=== PATIENT | female | born 1975 | race Two or more races ===

== ENCOUNTER 2024-12-27 08:56 | Emergency (ER) | payer MEDICAID, SELFPAY ==
--- NOTE | 2024-12-27 09:18 | XR_ITS ---
Examination: CT abdomen and pelvis without contrast. Coronal 3-D reconstructions. Sagittal 2-D reconstructions. Date and time of exam:December 27, 2024 1113 hours INDICATIONS: Abdominal pain and nausea today, history kidney stones COMPARISON: November 16, 2022 CTDI: vol (mGy): 9.02 DLP: (mGycm): 519 Technique: Axial images of the abdomen have been obtained, 3 mm slice thickness Intravenous contrast material has not been administered. Low dose protocols were performed. One or more of the following dose reduction techniques were used; automated exposure control, adjustment of the mA and/or KV according to patient size, use of iterative reconstruction technique. Findings: Retrocardiac gastric hernia No focal liver or splenic lesions Contracted gallbladder No pancreatic or adrenal mass Hyperdense renal pyramids with tiny 1 mm bilateral renal calculi No hydronephrosis or ureteral calculi Normal appendix No bowel obstruction No pelvic mass Contracted urinary bladder IMPRESSION: Tiny bilateral renal calculi with nephrocalcinosis No hydronephrosis or ureteral calculi Normal appendix No bladder mass or bladder calculi
--- NOTE | 2024-12-27 09:19 | XR_ITS ---
Examination: Abdomen sonogram, Limited Date and time of exam: December 27, 2024 10:00 AM INDICATIONS: Epigastric pain beginning 2 days ago Technique: Real-time appiah scale transabdominal sonographic images of the upper abdomen obtained. Findings: Normal gallbladder. Normal common bile duct 0.2 cm Pancreatic head 2.6 cm Liver 13.3 cm smooth contour no focal liver lesions Normal hepatopedal portal venous flow Patent IVC IMPRESSION: Negative study
--- NOTE | 2024-12-27 09:20 | PD.EDRME ---
Rapid Medical Screening Exam RME Arrival date/time: 12/27/24 08:56 49-year-old female presents to the emergency department for complaints of upper abdominal pain Chief Complaint: Abdominal Pain
[2024-12-27 09:26] VITALS: BP 159/101; PULSE 65; RESP 18; TEMP 36.8; O2SAT 97
[2024-12-27] MEDS: HYDROcodone/APAP 5/325 TABLET 1 TAB PO (09:30)
[2024-12-27] MEDS: METOCLOPRAMIDE 5 MG TABLET 10 MG PO (09:31)
[2024-12-27 09:41] LABS: Basophils # (Auto) 0.1 Thou/mm3 (0.0-0.2); Basophils % (Auto) 1 % (0-2.5); Eosinophils # (Auto) 0.2 Thou/mm3 (0.0-0.5); Eosinophils % (Auto) 3 % (0-10); Hematocrit 34.3 % (36.0-46.0); Hemoglobin 10.6 g/dL (12.0-16.0); Immature Granulocytes Auto 0.03 Thou/mm3 (0.00-0.00); Lymphocytes # (Auto) 2.0 Thou/mm3 (1.0-4.8); Lymphocytes % (Auto) 30 % (10-50); Mean Corpuscular HGB Conc 30.9 g/dl (31.0-37.0); Mean Corpuscular Hemoglobin 18.8 pg (25.0-35.0); Mean Corpuscular Volume 61 fL (80-100); Monocytes # (Auto) 0.7 Thou/mm3 (0.0-0.8); Monocytes % (Auto) 10 % (0-12); Neutrophils # (Auto) 3.9 Thou/mm3 (1.8-7.7); Neutrophils % (Auto) 57 % (37-80); Nucleated Red Blood Cell # 0.02 Thou/mm3 (0.00-0.00); Nucleated Red Blood Cell % 0 /100 WBC (0); Platelet Count 384 Thou/mm3 (140-440); RDW Standard Deviation 37.6 fL (36.4-46.3); Red Blood Count 5.63 Miln/mm3 (4.00-5.20); White Blood Count 6.9 Thou/mm3 (3.6-11.0)
[2024-12-27 10:01] LABS: Alanine Aminotransferase 39 U/L (10-49); Albumin, Serum 4.6 gm/dL (3.5-5.0); Albumin/Globulin Ratio 1.9 (1.2-2.2); Alkaline Phosphatase 146 U/L (46-116); Amylase 67 U/L (30-118); Anion Gap 9 (7-16); Aspartate Amino Transferase 30 U/L (0-34); BUN/Creatinine Ratio 14 Ratio (12-20); Bilirubin,Total 0.5 mg/dL (0.3-1.2); Blood Urea Nitrogen 11 mg/dL (9-23); Calcium 10.1 mg/dL (8.3-10.6); Calcium (Corrected) 10.1 mg/dL (8.5-10.1); Carbon Dioxide 28.0 mMol/L (20.0-31.0); Chloride 105 mMol/L (98-107); Creatinine (Component) 0.8 mg/dL (0.6-1.3); Globulin 2.4 gm/dL (2.3-3.5); Glucose 89 mg/dL (74-106); Osmolality,Calculated 281 (275-295); Potassium 4.4 mMol/L (3.4-5.1); Sodium 142 mMol/L (136-145); Total Protein 7.0 gm/dL (5.7-8.2); eGFR > 60 See Note
[2024-12-27 10:34] LABS: Collection Type, Urine Clean Catch
[2024-12-27 10:37] LABS: HCG Qualitative,Urine Negative
[2024-12-27 10:40] LABS: Bacteria,Urine 4+; Bilirubin,Urine Negative (Negative); Blood,Urine Trace (Negative); Color,Urine Yellow (Lt Yel-Yel); Glucose, Urine Negative (Negative); Hyaline Casts,Urine < 1 /hpf (0-1); Ketones,Urine Negative (Negative); Leukocyte Esterase,Urine Positive (Negative); Nitrite,Urine Positive (Negative); PH,Urine 6.5 (5.0-7.0); Protein,Urine Trace (Neg - Trace); RBC,Urine 4 /hpf (0-3); Specific Gravity,Urine 1.027 (1.001-1.035); Squamous Epithelial Cell,Urine 10 /hpf (0-5); Urobilinogen,Urine Negative mg/dL (0.0-1.0); WBC,Urine 15 /hpf (0-5)
[2024-12-27 10:43] LABS: Clarity,Urine Hazy (Clear/Hazy); Culture Indicated,Urine Yes
--- NOTE | 2024-12-27 13:00 | EDNOTE_ITS ---
ED Abdominal Pain RME/HPI General Chief Complaint: Abdominal Pain Stated complaint: UPPER ABD PAIN, NAUSEA Time seen by provider: 12/27/24 10:38 Arrival date/time: 12/27/24 08:56 RME / HPI RME / HPI narrative: 49-year-old female patient came in for evaluation regarding epigastric pain. Onset of symptoms for the last few days as epigastric pain described as dull ache, severity mild, associated with nausea. Patient denies any fever denies any dysuria frequency or other complaints. No medication was taken prior to ER visit. Related Data Home Medications ?Medication ?Instructions ?Recorded ?Confirmed atenolol 100 mg tablet 100 mg PO QAM 12/16/2312/15 Previous Rx's ?Medication ?Instructions ?Recorded hydrocodone 10 mg-acetaminophen 1 tab PO Q6H PRN pain #20 tabs 12/21/23 325 mg tablet cefuroxime axetil 500 mg tablet 500 mg PO BID #14 tabs 12/27/24 famotidine 40 mg tablet (Pepcid) 40 mg PO BID #30 tabs 12/27/24 Allergies Allergy/AdvReac Type Severity Reaction Status Date / Time Penicillins Allergy Severe SWELLING Verified 12/19/23 06:25 Review of Systems Review of Systems Narrative Review of Systems: Review of system reviewed and within normal limits except mentioned in HPI ED Exam Narrative Physical exam: VITAL SIGNS: Reviewed. GENERAL APPEARANCE: Alert and interactive, follows commands, no acute distress, HEAD AND FACE: Non-traumatic. ENT: PERRL, pink conjunctivitis, eyelid no trauma, Mucous membrane moist. NECK: Supple, nontender, no nuchal rigidity. CHEST: No tenderness, no crepitus, no paradoxical movement, no retractions. LUNGS: Clear, well ventilated, symmetric, no rales, no wheezing, no ronchi, no stridor, good breath sounds bilaterally. HEART: Regular rate, regular rhythm, no murmur, no gallops. ABDOMEN: Soft, positive bowel sounds, nondistended, no guarding, epigastric tenderness, no rebound, no masses, RECTAL: Deferred. GENITAL: Deferred. NEUROLOGICAL: Gross motor function intact sensory function intact, Appropriate for age. MUSCULOSKELETAL: low back nontender, full range of motion. EXTREMITIES: Nontender, full range of motion. SKIN: Color pink, dry, no rash, no lacerations, no abrasions, no contusions. LYMPHATICS: Deferred. Course Quality Measures none Orders Category Date Time Status CT abdomen pelvis wo con Stat Exams 12/27/24 09:18 Completed US gall bladder Stat Exams 12/27/24 09:19 Completed Amylase Stat Lab 12/27/24 09:35 Completed CBC Stat Lab 12/27/24 09:35 Completed Comprehensive Metabolic Panel Stat Lab 12/27/24 09:35 Completed HCG Qualitative,Urine Stat Lab 12/27/24 10:27 Completed UA, C/S IF [Urinalysis, C/S if Indicated] Stat Lab 12/27/24 10:27 Completed Urine Culture Stat Lab 12/27/24 10:27 Received 1,000 mg IM w/Lido* 1% Med 12/27/24 13:00 Ordered cefTRIAXone [Rocephin] 1,000 mg Lidocaine 1% 20 ml [Xylocaine 1% 20 ML] 2.1 ml IM X1 HYDROcodone*/APAP 5/325 [[place] 5/325] Med 12/27/24 09:19 Discontinued 1 tab PO X1 ONE Metoclopramide [Reglan] Med 12/27/24 09:19 Discontinued 10 mg PO X1 ONE Vital Signs Vital signs: Vital Signs Temperature 98.3 F 12/27/24 09:26 Pulse Rate 65 12/27/24 09:26 Respiratory Rate 18 12/27/24 09:26 Blood Pressure 159/101 H 12/27/24 09:26 Pulse Oximetry (%) 97 12/27/24 09:26 Oxygen Delivery Method Room Air 12/27/24 09:26 Abdominal Pain [facility] Narrative MDM Narrative:: 49-year-old female patient came in for evaluation regarding epigastric pain. Onset of symptoms for the last few days as epigastric pain described as dull ache, severity mild, associated with nausea. Patient denies any fever denies any dysuria frequency or other complaints. No medication was taken prior to ER visit. Ultrasound of the gallbladder came back unremarkable. CT scan of the abdomen and pelvis also came back unremarkable except for tiny calculi in the kidney. No obstruction noted. CBC no leukocytosis urinalysis significant for UTI. Patient receive ceftriaxone IM, [place] and Reglan with complete resolution of symptoms. Patient appears nontoxic and hemodynamically stable .Decision to discharge the patient. The patient/family was given an opportunity to ask questions and under stood their discharge instructions. Discharge instructions specifically included follow up provider and time frame, current and/or new medications and possible side effects, indications for sooner follow up or return to the emergency department, and the expected course of current diagnosis. Patient reports feeling better as well and giving evidence of significant clinical improvement, I believe patient is now a candidate for discharge. Patient data External records reviewed:: None Clinical information provided by:: patient Social determinants that could affect healthcare access:: none Patient has the following chronic illnesses:: Hypertension How is presenting disease/condition affected by chronic disease/condition?: uneffected by Evaluation data The following diagnostics were reviewed and interpreted by me:: lab results and radiology exam(s) Lab and/or radiology exams considered but not ordered:: None Interpretation Summary: See results and MDM Medications / Prescriptions Medications or Prescriptions considered but not ordered:: None Medication administrations:: Medication Administration History Discontinued Medications Hydrocodone Bitart/Acetaminophen (Hydrocodone/Apap 5/325 Tablet) 1 tab PO X1 ONE Stop: 12/27/24 09:20 Last Admin: 12/27/24 09:30 Dose: 1 tab Documented By: AROLDO Metoclopramide HCl (Metoclopramide 5 Mg Tablet) 10 mg PO X1 ONE Stop: 12/27/24 09:20 Last Admin: 12/27/24 09:31 Dose: 10 mg Documented By: AROLDO Ceftriaxone, Reglan and [place] Consultations Consultation(s) initiated? (list below): No Diagnosis Differential diagnosis abdominal pain: abdominal pain, gastroenteritis and pancreatitis Most likely diagnosis given after review of the tests above:: UTI Admission Indicated Admission indicated?: not indicated Admission Request Was there a request for admission?: No Disposition Plan Disposition Plan: Discharge Discharge Attestation Discharge Attestation: The patient and all family members were given an opportunity to ask questions and understood the discharge instructions. Discharge instructions specifically effects, indications for sooner follow up or return to the emergency department, and the expected course of current diagnosis. Patient condition: Stable Discharge Plan Plan Patient Disposition: HOME (Self Care) Discharge Disposition comment: Stable Prescriptions/Referrals Prescriptions/Med Rec: New cefuroxime axetil 500 mg tablet 500 mg PO BID Qty: 14 0RF famotidine [Pepcid] 40 mg tablet 40 mg PO BID Qty: 30 0RF No Action atenolol 100 mg Tablet 100 mg PO QAM hydrocodone-acetaminophen 10-325 mg tablet 1 tab PO Q6H MDD 4 PRN (Reason: pain) Qty: 20 0RF Referrals: Cody Ashley PA-C [Primary Care Provider] - In 1 week Problem List Clinical Impression: Gastritis, UTI (urinary tract infection) Patient/Caregiver Discharge Instructions Discharge Activity: activity as tolerated Education Materials: ED Gastritis (Adult) Additional Instructions: Thank you for the opportunity for serving you today. You are stable for discharged . You are advised to: Follow-up with your PCP in 1 to 2 days Return to ED for worsening of symptoms Increase oral fluids Take medication as prescribed Print Language: Nigerien Stand Alone Forms: Kelly Award Info., Patient Portal Info Letter PA/VITOR Supervising Physician PA/VITOR Supervising Physician: MD park
[2024-12-27] MEDS: cefTRIAXone 1,000 MG, LIDOCAINE 1% 20 ML 2.1 ML IM (13:14)
== END 2024-12-27 13:37 | disposition home or self-care (01) ==
PROVIDERS: Nurse Practitioner Primary Care; Emergency Provider Family Medicine; PCP Physician Assistant
DX: K29.70 Gastritis, unspecified, without bleeding (principal); N39.0 Urinary tract infection, site not specified
CPT/HCPCS: 36415; 74176; 76705; 80053; 81001; 81025; 82150; 85025; 87077; 87086; 87186; 96372; 99284; J0696; J3490; A9270